=== PATIENT | female | born 1985 | race African-American/Black ===

== ENCOUNTER 2019-06-19 15:58 | Emergency (ER) | payer SELFPAY ==
[~2019-06-19] VITALS: Ht 167.6 cm; Wt 100.9 kg
[~2019-06-19 15:58] MED LIST: ACET325T33 PO; BACI28.34 TOP; IBUP-1542 PO
[2019-06-19 16:05] VITALS: Ht 167.6 cm; Wt 100.9 kg
== END 2019-06-19 16:19 | disposition home or self-care (01) ==
LOC: E/R 15:58
DX: T20.15XA Burn of first degree of scalp [any part], initial encounter (principal); X19.XXXA Contact with other heat and hot substances, initial encounter; Y92.9 Unspecified place or not applicable
CPT/HCPCS: 99282